=== PATIENT | female | born 1950 | race Caucasian/White ===

== ENCOUNTER → 2017-05-23 | Outpatient (CLI) | payer OTHER ==
[~2017-05-23] MED LIST: ALBUTEROL 0.5ML INH; ALBUTEROL MININEB NEB; ALBUTEROL17 GM INH; AMOXICILLIN500 M1 PO; ANAPROX DS550 M1 PO; ANORO ELLIPTA1 EACH INH; ATORVASTATIN CA10 MG PO; ATROVENT NEB; BENZONATATE PO; BIAXIN PO; CALCIUM1 TAB.CHEW PO; CEFDINIR300 MG PO; CIPRO PO; COMBIVENT14.7 GM PO; CRANBERRY 12,61 EACH PO; DOXYCYCLINE150 MG PO; DUONEB 2.5-0.5 M3 ML NEB; FLEXERIL10 MG PO; FLONASE16 GM; IMITREX25 MG PO; IMMODIUM1 MG/5 M1 PO; IMODIUM2 MG PO; LEVAQUIN PO; LEVAQUIN750 MG PO; LOPERAMIDE HCL2 M1 PO; MACROBID 100 M100 MG PO; MACROBID100 MG PO; OMEPRAZOLE40 M1 PO; OMNICEF300 M1 PO; OXAPROZIN600 MG; PERCOCET PO; PHENERGAN PO; PHENERGAN SUPP25 M1 PR; PHENERGAN12.5 M1 PR; PHENERGAN12.5 MG PO; PHENERGAN12.5 MG/SU RC; PHENERGAN25 M1 PO; PHENERGAN25 MG PO; PREDNISONE PO; PREDNISONE10 MG PO; PROAIR HFA8.5 GM INH; PROTONIX PO; REQUIP0.5 MG PO; REQUIP1 MG PO; REQUIP2 MG PO; REQUIP5 MG PO; ROBINUL1 M1 PO; ROPINIROLE HCL5 MG PO; SINGULAIR PO; STAHIST TA1 TAB.SR . PO; SYMBICORT INH; TYLENOL PM EX-1 EACH PO; TYLENOL PM PO; TYLOX1 CAP 5/50 PO; VICODIN 5/500 T1 TAB PO; XANAX0.5 M1 PO; ZITHROMAX PO; ZITHROMAX1 G/PKT PO; ZOFRAN PO; ZOFRANODT PO; [UNRECOGNIZED DRUG - OTHER]; [UNRECOGNIZED DRUG - OTHER] PO
--- NOTE | ~2017-05-23 | CT4 ---
[facility] A Service of [facility] RADIOLOGY TEXT RESULTS PATIENT: CANDIDA MCARTHUR LOCATION: [facility] : 54 UNIT #: [id number] AGE: [address]: DARLIN LEE MD SEX: F ORDER DR: [id number] [facility]. [place], [place] [address] [id number] O MR#: [id number] Acc #: [id number] NAME: CANDIDA MCARTHUR. : 1950 SEX: F STUDY DATE/TIME: 05/23/2017 12:37 UNIT: [facility] ROOM: STUDY DESCRIPTION: CT Abd and Pelv Wo Cont Attending Physician: Darlin eLe M.D. Referring Physician: Darlin Lee M.D. Ordering Physician: Darlin Lee M.D. Primary Care Physician: Brennan Sagastume M.D. MEDICAL IMAGING REPORT This report is preliminary unless electronic signature is present EXAM Abdomen and pelvis CT without contrast HISTORY Qit-[id number] abdominal pain. Nausea and vomiting. Decreased appetite for the past 3 weeks. COMPARISON 10/25/2015. TECHNIQUE Axial images were obtained without contrast. This CT exam was performed with one or more of the following radiation dose reduction techniques: automatic exposure control, adjustment of mA and/or kV according to patient size, and iterative reconstruction. FINDINGS Mild chronic atelectasis is seen at the left lung base, unchanged from the previous scan. The liver, spleen and pancreas are normal in size. Punctate calcifications are seen in each kidney, either from stone disease or vascular calcification. No hydronephrosis. No evidence of ureteral stone or bladder stone. There is no evidence of retroperitoneal adenopathy or ascites and no distended bowel loops are seen. The appendix is normal. Mild diverticulosis is seen in the sigmoid colon. There is no evidence of diverticulitis. In the pelvis, there is no evidence of adenopathy, mass or fluid collection. IMPRESSION Mild diverticulosis. No acute or inflammatory change is seen. Normal appendix. [facility] A Service of [facility] RADIOLOGY TEXT RESULTS PATIENT: CANDIDA MCARTHUR LOCATION: [facility] : 54 UNIT #: [id number] AGE: [address]: DARLIN LEE MD SEX: F ORDER DR: Dictated by... Man Will M.D. THIS IS AN ELECTRONICALLY VERIFIED REPORT Man Will M.D. at 05/28/2017 4:52 PM RLF/pcl TD: 05/23/2017 18:17 JOB #: [id number] MEDICAL IMAGING REPORT Page 1 of 1 COPY
[2017-05-23 17:10] LABS: POC - CREATININE 0.93 mg/dL (0.44-1.03); POC - GFR >60.0 mL/min (>60)
== END | disposition home or self-care (01) ==
LOC: CCAT 08:40
PROVIDERS: Specialist/Technologist, Other Surgical Technologist
DX: R10.9 Unspecified abdominal pain (principal); R11.10 Vomiting, unspecified; K57.90 Diverticulosis of intestine, part unspecified, without perforation or abscess without bleeding
CPT/HCPCS: 74176; 82565

== ENCOUNTER 2017-06-01 20:33 | Emergency (ER) | payer OTHER ==
--- NOTE | ~2017-06-01 | CT2 ---
[facility] A Service of [facility] RADIOLOGY TEXT RESULTS PATIENT: CANDIDA MCARTHUR LOCATION: [facility] : 54 UNIT #: [id number] AGE: [address]: Dwight Angel MD SEX: F ORDER DR: [id number] [facility] [address] [place], [place] [address] [id number] E MR#: [id number] Acc #: [id number] NAME: CANDIDA MCARTHUR. : 1950 SEX: F STUDY DATE/TIME: 06/02/2017 0:29 UNIT: [facility] ROOM: STUDY DESCRIPTION: CT Abd and Pelv W Cont Attending Physician: Dwight Angel M.D. Ordering Physician: Dwight Angel M.D. Primary Care Physician: Brennan Sagastume M.D. MEDICAL IMAGING REPORT This report is preliminary unless electronic signature is present EXAM CT abdomen and pelvis with contrast. INDICATION Unable to eat for 15 days, vomiting and tenderness in the abdomen. COMPARISON STUDY 05/23/2017. TECHNIQUE The patient was given 100 mL of Isovue-370 and axial 5 mm images were obtained through the abdomen and pelvis. Sagittal and coronal reconstructions were generated. This CT exam was performed with one or more of the following radiation dose reduction techniques: Automatic exposure control, adjustment of mA and/or kV according to patient size, and iterative reconstruction. FINDINGS The lung bases are clear. The liver contains a tiny cyst in the left lobe and is otherwise normal. The gallbladder has been removed. The spleen, pancreas, adrenal glands and kidneys are normal in appearance. The aorta is normal in size. There is no adenopathy. There are sigmoid diverticula without evidence of diverticulitis. The appendix is normal. The bladder is normal. The uterus has been removed and there are no adnexal masses. The bones are unremarkable. IMPRESSION 1. No acute findings. 2. Sigmoid diverticulosis. [facility] A Service [facility] RADIOLOGY TEXT RESULTS PATIENT: CANDIDA MCARTHUR LOCATION: [facility] : 54 UNIT #: [id number] AGE: [address]: Dwight Angel MD SEX: F ORDER DR: Dictated by... Sanjay Guajardo M.D. THIS IS AN ELECTRONICALLY VERIFIED REPORT Sanjay Guajardo M.D. at 06/02/2017 1:36 PM FEL/bd TD: 06/02/2017 12:50 JOB #: [id number] MEDICAL IMAGING REPORT Page 1 of 1 COPY
[~2017-06-01 20:33] MED LIST changes: -PHENERGAN SUPP25 M1 PR
[2017-06-01 23:53] LABS: BASOPHIL# 0.1 X10e3 (0-0.3); BASOPHIL% 0.8 % (0-2.5); EOSINOPHIL# 0.1 X10e3 (0-0.7); EOSINOPHIL% 1.6 % (0.0-7.0); HEMATOCRIT 42.5 % (35.0-45.0); HEMOGLOBIN 13.7 gm/dL (12.0-16.0); LYMPHOCYTE# 2.5 X10e3 (1.0-3.5); LYMPHOCYTE% 31.1 % (17.0-45.0); MEAN CELL VOLUME 81.9 FL (83-96); MEAN CORPUSCULAR HEMOGLOBIN 26.5 PG (28-34); MEAN CORPUSCULAR HGB CONC 32.3 g/dL (30-36); MEAN PLATELET VOLUME 9.2 FL (6.5-11.5); MONOCYTE# 0.5 X10e3 (0-1.0); MONOCYTE% 6.1 % (3.0-12.0); NEUTROPHIL# 4.9 X10e3 (1.5-7.1); NEUTROPHIL% 60.4 % (40-75); PLATELET COUNT 247 X10e3 (140-420); RED BLOOD COUNT 5.19 X10e (3.90-5.30); RED CELL DISTRIBUTION WIDTH 15.9 % (11.0-15.5); WHITE BLOOD COUNT 8.1 X10e3 (4.0-10.5)
[2017-06-01 23:54] LABS: DIFF IND NO
[2017-06-01 23:58] LABS: URINE SOURCE CLEAN CATCH
[2017-06-02 00:07] LABS: URINE APPEARANCE CLOUDY; URINE BILIRUBIN NEG (NEG); URINE BLOOD TRACE (NEG); URINE COLOR DK YELLOW; URINE GLUCOSE NEG (NEG); URINE KETONE 3+ (NEG); URINE LEUKOCYTE ESTERASE 2+ (NEG); URINE NITRATE POS (NEG); URINE PROTEIN TRACE (NEG); URINE SPECIFIC GRAVITY 1.019 (1.003-1.035)
[2017-06-02 00:10] LABS: CULTURE INDICATED? YES; URINE BACTERIA AUWI 4+ (NEGATIVE); URINE SQUAMOUS EPITHELIAL CELL FEW /[HPF]; UWBCS1 AUWI 50-100 (0-5)
[2017-06-02 00:14] LABS: BILIRUBIN,TOTAL 1.3 mg/dL (0.2-2.0); BUN/CREATININE RATIO 8.57; CALCIUM SERUM 9.4 mg/dL (8.4-10.2); CREATININE SERUM 0.7 mg/dL (0.6-1.4); GLOM FILT RATE Estimated 91.6 mL/min (>60); POTASSIUM 3.6 mmol/L (3.5-5.1); PROTEIN TOTAL SERUM 7.4 g/dL (6.0-8.3)
[2017-06-13] MEDS ORDERED: PHENERGAN SUPP25 M1 PR (09:07)
[2017-06-13] MEDS ORDERED: PROTONIX PO (11:15)
== END 2017-06-02 02:30 | disposition home or self-care (01) ==
LOC: CED 20:33
PROVIDERS: Emergency Medicine
DX: E86.0 Dehydration (principal); N39.0 Urinary tract infection, site not specified; J44.9 Chronic obstructive pulmonary disease, unspecified; K21.9 Gastro-esophageal reflux disease without esophagitis; G43.909 Migraine, unspecified, not intractable, without status migrainosus; Z90.49 Acquired absence of other specified parts of digestive tract; Z88.1 Allergy status to other antibiotic agents; Z79.899 Other long term (current) drug therapy
CPT/HCPCS: 36415; 74177; 80053; 81003; 85025; 87086; 87088; 87186; 96361; 96365; 96375; 99284; J0696; J2270; J2405; J2550; Q9967

== ENCOUNTER → 2017-06-13 | Day surgery (SDC) | payer MEDICARE ==
[~2017-06-13] MED LIST changes: +PHENERGAN SUPP25 M1 PR
--- NOTE | ~2017-06-13 | OR ---
Unit #: [id number] #: [id number] Patient: CANDIDA MCARTHUR [id number] [address] [address] [id number] O MR#: [id number] NAME: CANDIDA MCARTHUR ROOM: Date of Procedure: 06/13/2017 Admission Date: 06/13/2017 Surgeon: Ambrosio Hernandez M.D. : 1950 Attending Physician: Ambrosio Hernandez M.D. Referring Physician: Ambrosio Hernandez M.D. Primary Care Physician: Eliza Vallejo M.D. OPERATIVE REPORT PREOPERATIVE DIAGNOSES The patient has presented with recurrent nausea and vomiting, weight loss, epigastric pain and dyspepsia. PROCEDURES PERFORMED Upper gastrointestinal endoscopy and biopsy. POSTOPERATIVE DIAGNOSES 1. The patient had moderate ulcerative esophagitis involving the mid esophagus. In addition, there was an early stricture in the same area. 2. Small hiatus hernia. 3. Rest of the examination up to third part of duodenum was normal. Biopsy was obtained from the antrum for CLOtest. RECOMMENDATIONS The patient is advised to take pantoprazole or omeprazole 40 mg p.o. b.i.d. She will be followed up in the office in 6 to 8 weeks' time. At that time, she may require elective dilation if she is having any dysphagia to solids. SEDATION USED MAC. DESCRIPTION OF PROCEDURE Following detailed explanation of the potential risks and complications of an upper endoscopy, namely perforation, bleeding, and complication related to sedation, the patient was brought to GI lab and laid in the left lateral decubitus position. Lubricated tip of the Olympus video upper endoscope was passed through bite block into the proximal esophagus under direct vision. The entire esophageal mucosa was examined. The patient was noted to have ulcerative esophagitis involving the mid esophagus. This was in a small sector. The distal esophagus itself being normal. In addition, there was early esophageal stricture. The stricture was present at the upper end of Terry esophagus. The scope was then advanced past the small hiatus hernia into the gastric cavity. Mucosa of the fundus, body, and antrum examined and appeared unremarkable. Pylorus was intubated with visualization of the normal duodenal bulb and second and third part of the duodenum. Upon withdrawal and retroflexion, incisura, cardia, and greater curve were examined and biopsy was obtained from the antrum for CLOtest. The scope was then withdrawn into the distal esophagus. Entire esophageal mucosa was examined all the way up to pharynx. No additional findings noted. The patient tolerated the Unit #: [id number] #: [id number] Patient: CANDIDA MCARTHUR procedure without any postprocedure complications. Dictated by... Dmitri Mills/hasmukh TD: 06/14/2017 06:13 JOB #: [id number] CC: Eliza Vallejo M.D. OPERATIVE REPORT Page 1 of 1 X Ambrosio Hernandez MD X PROCEDURE OPERATIVE NOTE
== END | disposition home or self-care (01) ==
LOC: COPS 08:32
DX: K22.10 Ulcer of esophagus without bleeding (principal); K44.9 Diaphragmatic hernia without obstruction or gangrene; K22.2 Esophageal obstruction; J45.909 Unspecified asthma, uncomplicated; K21.9 Gastro-esophageal reflux disease without esophagitis; E78.5 Hyperlipidemia, unspecified; Z87.442 Personal history of urinary calculi; Z88.1 Allergy status to other antibiotic agents; Z79.899 Other long term (current) drug therapy; Z90.49 Acquired absence of other specified parts of digestive tract; Z90.710 Acquired absence of both cervix and uterus; Z98.890 Other specified postprocedural states
CPT/HCPCS: 87077; J1642

== ENCOUNTER → 2017-06-17 | Outpatient (CLI) | payer MEDICARE ==
[2017-06-17 15:37] LABS: BASOPHIL% 0.2 % (0-2.5); EOSINOPHIL# 0.2 X10e3 (0-0.7); EOSINOPHIL% 1.6 % (0.0-7.0); HEMATOCRIT 42.8 % (35.0-45.0); HEMOGLOBIN 14.5 gm/dL (12.0-16.0); LYMPHOCYTE# 1.7 X10e3 (1.0-3.5); LYMPHOCYTE% 16.9 % (17.0-45.0); MEAN CELL VOLUME 78.3 FL (83-96); MEAN CORPUSCULAR HEMOGLOBIN 26.5 PG (28-34); MEAN CORPUSCULAR HGB CONC 33.8 g/dL (30-36); MEAN PLATELET VOLUME 9.2 FL (6.5-11.5); MONOCYTE# 0.9 X10e3 (0-1.0); MONOCYTE% 8.6 % (3.0-12.0); NEUTROPHIL# 7.3 X10e3 (1.5-7.1); NEUTROPHIL% 72.7 % (40-75); PLATELET COUNT 352 X10e3 (140-420); RED BLOOD COUNT 5.46 X10e (3.90-5.30); RED CELL DISTRIBUTION WIDTH 16.3 % (11.0-15.5); WHITE BLOOD COUNT 10.1 X10e3 (4.0-10.5)
[2017-06-17 15:39] LABS: DIFF IND NO
[2017-06-17 15:55] LABS: ALBUMIN SERUM 3.7 g/dL (3.5-5.0); ALKALINE PHOSPHATASE 83 U/L (32-92); ALT (SGPT) 19 U/L (10-40); AST (SGOT) 26 U/L (10-42); BILIRUBIN,TOTAL 1.9 mg/dL (0.2-2.0); BLOOD UREA NITROGEN <5 mg/dL (9-23); BUN/CREATININE RATIO 6.25; CALCIUM SERUM 9.5 mg/dL (8.4-10.2); CARBON DIOXIDE 16 mmol/L (22-31); CHLORIDE 97 mmol/L (100-111); CREATININE SERUM 0.8 mg/dL (0.6-1.4); GLOM FILT RATE Estimated 77.4 mL/min (>60); GLUCOSE FASTING 98 mg/dL (70-110); PROTEIN TOTAL SERUM 6.9 g/dL (6.0-8.3); SODIUM 132 mmol/L (135-145)
[2017-06-17 15:59] LABS: POTASSIUM 1.9 mmol/L (3.5-5.1)
== END | disposition home or self-care (01) ==
LOC: CLAB 14:54
PROVIDERS: Internal Medicine Gastroenterology
DX: R11.2 Nausea with vomiting, unspecified (principal)
CPT/HCPCS: 36415; 80053; 85025

== ENCOUNTER → 2017-06-23 | Outpatient (CLI) | payer OTHER ==
[2017-06-23 12:53] LABS: HEMOGLOBIN 14.5 gm/dL (12.0-16.0); MEAN CELL VOLUME 80.1 FL (83-96); MEAN CORPUSCULAR HGB CONC 33.7 g/dL (30-36); MEAN PLATELET VOLUME 9.3 FL (6.5-11.5); RED BLOOD COUNT 5.36 X10e (3.90-5.30); RED CELL DISTRIBUTION WIDTH 16.5 % (11.0-15.5); WHITE BLOOD COUNT 7.3 X10e3 (4.0-10.5)
[2017-06-23 13:33] LABS: ALBUMIN SERUM 3.8 g/dL (3.5-5.0); BILIRUBIN,TOTAL 1.6 mg/dL (0.2-2.0); BUN/CREATININE RATIO 12.85; CREATININE SERUM 0.7 mg/dL (0.6-1.4); GLOM FILT RATE Estimated 90.9 mL/min (>60); PROTEIN TOTAL SERUM 6.8 g/dL (6.0-8.3)
[2017-06-23 13:34] LABS: POTASSIUM 3.1 mmol/L (3.5-5.1)
== END | disposition home or self-care (01) ==
LOC: CLAB 12:10
PROVIDERS: Nurse Practitioner
DX: K22.10 Ulcer of esophagus without bleeding (principal)
CPT/HCPCS: 36415; 80053; 85027

== ENCOUNTER → 2017-07-08 | Outpatient (CLI) | payer OTHER ==
[2017-07-08 12:10] LABS: BASOPHIL# 0.1 X10e3 (0-0.3); BASOPHIL% 1.4 % (0-2.5); EOSINOPHIL# 0.4 X10e3 (0-0.7); EOSINOPHIL% 6.5 % (0.0-7.0); HEMATOCRIT 35.6 % (35.0-45.0); HEMOGLOBIN 11.7 gm/dL (12.0-16.0); LYMPHOCYTE# 1.1 X10e3 (1.0-3.5); LYMPHOCYTE% 21.2 % (17.0-45.0); MEAN CELL VOLUME 82.1 FL (83-96); MEAN CORPUSCULAR HEMOGLOBIN 27.1 PG (28-34); MEAN PLATELET VOLUME 7.9 FL (6.5-11.5); MONOCYTE# 0.5 X10e3 (0-1.0); MONOCYTE% 8.8 % (3.0-12.0); NEUTROPHIL# 3.4 X10e3 (1.5-7.1); NEUTROPHIL% 62.1 % (40-75); PLATELET COUNT 315 X10e3 (140-420); RED BLOOD COUNT 4.33 X10e (3.90-5.30); RED CELL DISTRIBUTION WIDTH 16.8 % (11.0-15.5); WHITE BLOOD COUNT 5.4 X10e3 (4.0-10.5)
[2017-07-08 12:11] LABS: DIFF IND NO
[2017-07-08 12:56] LABS: ALBUMIN SERUM 3.3 g/dL (3.5-5.0); BILIRUBIN,TOTAL 0.6 mg/dL (0.2-2.0); CALCIUM SERUM 8.7 mg/dL (8.4-10.2); CREATININE SERUM 0.5 mg/dL (0.6-1.4); GLOM FILT RATE Estimated 101.6 mL/min (>60); PROTEIN TOTAL SERUM 5.9 g/dL (6.0-8.3)
[2017-07-08 13:29] LABS: POTASSIUM 2.9 mmol/L (3.5-5.1)
== END | disposition home or self-care (01) ==
LOC: CLAB 11:16
PROVIDERS: Internal Medicine Gastroenterology
DX: K21.9 Gastro-esophageal reflux disease without esophagitis (principal); K22.2 Esophageal obstruction
CPT/HCPCS: 36415; 80053; 85025